=== PATIENT | male | born 1945 | race Caucasian/White ===

== ENCOUNTER 2017-05-15 04:55 | Inpatient (IN) | payer MEDICARE, OTHER ==
[~2017-05-15 04:55] MED LIST: ASPIRIN EC81 MG PO; COREG25 M1 PO; FLOMAX0.4 M1 PO; LASIX40 M1 PO; NIASPAN500 M1 PO; POTASSIUM CHLO20 ME3 PO; PROSCAR5 M1 PO; ROSUVASTATIN CA20 MG PO; VOLTAREN100 G1 TOP; XARELTO20 M1 PO; ZESTRIL2.5 M3 PO
[2017-05-15 06:01] LABS: INR 1.2 INR (0.9-1.1); PROTHROMBIN TIME 13.4 SECONDS (9.0-13.6)
[2017-05-16 05:20] LABS: HCT-HEMATOCRIT 38.9 % (36.0-53.5); HGB-HEMOGLOBIN 12.4 gm/dl (13.5-17.0); IMMATURE GRANULOCYTES ABSOLUTE 0.05 tho/cmm (0-0.03); IMMATURE GRANULOCYTES PERCENT 0.2 % (0-0.3); LYMPH % 2.7 % (20-45); LYMPH ABSOLUTE COUNT 0.6 tho/cmm (0.8-4.5); MCH (MEAN CORPUSCULAR HGB) 26.8 pg (28.0-32.0); MCHC MEAN CORPUSCULAR HGB CONC 31.9 % (32.0-36.0); MCV (MEAN CELL VOLUME) 84.2 fl (82.0-96.0); MEAN PLATELET VOLUME 10.5 cmc (9.4-12.4); MONOCYTE ABSOLUTE COUNT 1.4 tho/cmm (0.0-1.2); NEUTROPHIL ABSOLUTE COUNT 18.3 tho/cmm (1.6-8.0); NEUTROPHIL-AUTOMATED 18.3 tho/cmm (1.6-8.0); NEUTROPHILS % 90.1 % (40-80); PLATELET COUNT 166 tho/cmm (150-450); RED BLOOD COUNT 4.62 mil/cmm (4.40-5.70); RED CELL DISTRIBUTION WIDTH 14.6 % (12.4-16.4); WHITE BLOOD COUNT 20.3 tho/cmm (4.0-10.0)
[2017-05-17 10:38] LABS: BASO % 0.2 % (0-2); EOS % 3.7 % (0-7); EOSINOPHIL ABSOLUTE COUNT 0.5 tho/cmm (0.0-0.7); HCT-HEMATOCRIT 37.7 % (36.0-53.5); IMMATURE GRANULOCYTES ABSOLUTE 0.03 tho/cmm (0-0.03); IMMATURE GRANULOCYTES PERCENT 0.2 % (0-0.3); LYMPH % 10.5 % (20-45); LYMPH ABSOLUTE COUNT 1.4 tho/cmm (0.8-4.5); MCH (MEAN CORPUSCULAR HGB) 27.1 pg (28.0-32.0); MCHC MEAN CORPUSCULAR HGB CONC 31.8 % (32.0-36.0); MCV (MEAN CELL VOLUME) 85.1 fl (82.0-96.0); MEAN PLATELET VOLUME 9.9 cmc (9.4-12.4); MONO % 10.6 % (0-12); MONOCYTE ABSOLUTE COUNT 1.4 tho/cmm (0.0-1.2); NEUTROPHILS % 74.8 % (40-80); PLATELET COUNT 147 tho/cmm (150-450); RED BLOOD COUNT 4.43 mil/cmm (4.40-5.70); RED CELL DISTRIBUTION WIDTH 15.3 % (12.4-16.4); WHITE BLOOD COUNT 13.4 tho/cmm (4.0-10.0)
[2017-05-17] MEDS ORDERED: TYLENOL325 M2 PO (12:32)
[2017-05-17] MEDS ORDERED: OXYCODONE HCL5 M1 PO (12:33)
[2017-05-17] MEDS ORDERED: ULTRAM50 M1 PO (12:34)
[2017-05-17] MEDS ORDERED: CELEBREX200 M1 PO (12:35)
[2017-05-17] MEDS ORDERED: SENOKOT-S TABL1 EACH PO (12:36)
[2017-06-04] MEDS ORDERED: OXYCODONE HCL5 M1 PO (16:23)
[2017-08-20] MEDS ORDERED: OMEPRAZOLE20 M3 PO (13:36)
[2017-08-20] MEDS ORDERED: FERROUS SULFAT325 MG PO (13:38)
[2017-08-20] MEDS ORDERED: KEFLEX500 M4 PO (13:39)
[2017-08-20] MEDS ORDERED: LASIX40 M1 PO ×2 (13:39→13:40)
[2017-08-20] MEDS ORDERED: XARELTO20 M1 PO (13:55)
[2017-08-20] MEDS ORDERED: CPAP (14:01)
[2017-08-24] MEDS ORDERED: VANCOMYCIN HCL500 MG IV (11:59)
[2017-08-24] MEDS ORDERED: XARELTO15 M1 PO (11:59)
[2017-08-24] MEDS ORDERED: ROXICODONE5 M2 PO (12:03)
[2017-08-24] MEDS ORDERED: ELIQUIS2.5 M1 PO (12:04)
[2017-08-24] MEDS ORDERED: TYLENOL325 M2 PO (12:05)
[2017-08-24] MEDS ORDERED: SENOKOT-S TABL1 EACH PO (12:06)
== END 2017-05-17 14:00 | DRG 470 ==
LOC: SHSC 04:55 → ORE 07:38 → PACU 08:57 → 5EA 10:10
PROVIDERS: Family Medicine; ADMIT Orthopaedic Surgery Foot and Ankle Surgery
PROC: 0SRC0JZ Replacement of Right Knee Joint with Synthetic Substitute, Open Approach (ICD-10-PCS; principal; 2017-05-15)
DX: M17.11 Unilateral primary osteoarthritis, right knee (principal); G47.33 Obstructive sleep apnea (adult) (pediatric); I25.10 Atherosclerotic heart disease of native coronary artery without angina pectoris
CPT/HCPCS: C1713; C1776; J0171; J0690; J1885; J2270; J2405; J2795; J7050